=== PATIENT | male | born 1985 | race African-American/Black ===

== ENCOUNTER 2020-09-13 12:48 | Emergency (ER) | payer MEDICAID ==
[~2020-09-13] VITALS: Ht 170.2 cm; Wt 62.0 kg
[~2020-09-13 12:48] MED LIST: BECL8.7A7 INH; PRED20TA PO
--- NOTE | 2020-09-13 13:16 | NUR ---
PT BROUGHT BACK FROM TRIAGE WITH CHIEF COMPLAINT OF RASH ON RIGHT ARM, HEAD, GROIN, AND BACK. PT REPORTS RASH/SORES DEVELOPED YESTERDAY.
--- NOTE | 2020-09-13 13:25 | NUR ---
FIRST CONTACT WITH PATIENT MOTHER AT BEDSIDE. PROVIDED WARM BLANKET AND CALL LIGHT. CONTINUOUS SPO2 AND CYCLING VITALS. NO ADDITIONAL NEEDS AT THIS TIME
[2020-09-13 14:02] VITALS: BP 187/101
--- NOTE | 2020-09-13 14:07 | NUR ---
Patient/Caregiver given discharge instructions and they have confirmed that they understand the instructions. Patient ambulatory with steady gait.
== END 2020-09-13 14:08 | disposition home or self-care (01) ==
LOC: ED 13:50
DX: L73.9 Follicular disorder, unspecified (principal); J45.909 Unspecified asthma, uncomplicated; F17.200 Nicotine dependence, unspecified, uncomplicated
CPT/HCPCS: 99283

== ENCOUNTER 2020-10-14 10:40 | Emergency (ER) | payer MEDICAID ==
[~2020-10-14] VITALS: Ht 170.2 cm; Wt 64.2 kg
--- NOTE | 2020-10-14 10:57 | NUR ---
pt in room states his skin on his cheast/ abd/ back is hurts 8\10. has not set a dermatology apt yet. was given a refferal last time he was in the er
[2020-10-14] MEDS ORDERED: LORazepam 1MG TABLET PO ONE (11:30)
[2020-10-14] MEDS ORDERED: SODIUM CHLORIDE 0.9% 1,000ML IVBOLUS ONE (11:30)
[2020-10-14] MEDS ORDERED: SODIUM CHLORIDE FLUSH 10ML SYR IVF ONE (11:30)
[2020-10-14] MEDS ORDERED: LORazepam 1MG TABLET ONE (11:56)
[2020-10-14 11:58] LABS: BASOPHILS % (AUTO) 0 % (0-1); EOSINOPHILS % (AUTO) 15 % (1-7); LYMPHOCYTES % (AUTO) 17 % (22-44); MEAN CORPUSCULAR HEMOGLOBIN 31.6 pg (27.5-34.5); MEAN CORPUSCULAR HGB CONC 33.8 g/dL (33.2-36.2); MEAN PLATELET VOLUME 7.1 fL (7.4-10.4); MONOCYTES % (AUTO) 9 % (2-9); NEUTROPHILS % (AUTO) 59 % (42-75); PLATELET COUNT 282 x10^3/uL (130-400); RED BLOOD COUNT 4.82 x10^6/uL (4.38-5.82); RED CELL DISTRIBUTION WIDTH 15.4 % (9.4-14.8)
[2020-10-14 12:02] LABS: MD NO
--- NOTE | 2020-10-14 12:03 | NUR ---
PT IN BED ADMIN MEDS
[2020-10-14 12:07] LABS: ALBUMIN 3.3 g/dL (3.4-5.0); ANION GAP 5 mmol/L (5-15); CHLORIDE 109 mmol/L (98-107)
[2020-10-14 12:12] LABS: ALANINE AMINOTRANSFERASE 29 U/L (12-78); ALKALINE PHOSPHATASE 106 U/L (45-117); BILIRUBIN,TOTAL 0.4 mg/dL (0.2-1.0); CREATININE 0.61 mg/dL (0.7-1.3); TOTAL PROTEIN 6.8 g/dL (6.4-8.2)
[2020-10-14 13:14] VITALS: BP 136/99
--- NOTE | 2020-10-14 13:15 | NUR ---
pt resting in bed
--- NOTE | 2020-10-14 13:56 | NUR ---
pt walked out self with steady gait. given rx and refferal. if s&s worsen return to ER.
== END 2020-10-14 13:57 | disposition home or self-care (01) ==
LOC: ED 11:10
DX: R21 Rash and other nonspecific skin eruption (principal); J45.909 Unspecified asthma, uncomplicated
CPT/HCPCS: 36415; 80053; 85025; 87806; 96360; 96361; 99283; J7030; Q0177; G0475